=== PATIENT | male | born 1980 | race Two or more races ===

== ENCOUNTER 2022-09-23 11:14 | Emergency (ER) | payer OTHER ==
[~2022-09-23] VITALS: Ht 172.7 cm; Wt 88.5 kg
[~2022-09-23 11:14] MED LIST: CEFUROXIME500 MG PO; ORASEP SPRAY30 ML MM; PANADOL MAXIMU500 MG PO; TESSALON PERLE100 M1 PO; ZITHROMAX500 MG PO
[2022-09-23] MEDS ORDERED: TUSSIN DM SYRU118 ML PO (15:19)
[2022-09-23] MEDS ORDERED: KETO10TA2 PO (15:19)
[2022-09-23] MEDS ORDERED: ALLEGRA ALLERG180 MG PO (15:19)
== END 2022-09-23 15:24 | disposition home or self-care (01) ==
LOC: ER 11:14
DX: S99.922A Unspecified injury of left foot, initial encounter (principal); W19.XXXA Unspecified fall, initial encounter; Y93.9 Activity, unspecified; Y92.89 Other specified places as the place of occurrence of the external cause; Y99.9 Unspecified external cause status; Z20.822 Contact with and (suspected) exposure to COVID-19